=== PATIENT | female | born 1990 | race Caucasian/White ===

== ENCOUNTER 2016-08-12 18:31 | Emergency (ER) | payer OTHER ==
[~2016-08-12] VITALS: Ht 154.9 cm; Wt 56.0 kg
[~2016-08-12 18:31] MED LIST: DENIES; LIDO20SO19 MM
[2016-08-12 19:01] VITALS: Ht 154.9 cm; Wt 56.0 kg
[2016-08-12] MEDS ORDERED: KETOROLAC 30 MG INJ IM STA (20:21)
[2016-08-12] MEDS ORDERED: IBUP400T22 PO (20:23)
--- NOTE | 2016-08-12 20:58 | RADRPT ---
PROCEDURE: XR Knee. CLINICAL INDICATION: Right knee pain. TECHNIQUE: Three views of the right knee are available for review. COMPARISON: None available FINDINGS: No acute fracture or dislocation is seen. No radiopaque foreign body is identified. Alignment is a natomic. No significant soft tissue swelling is present. IMPRESSION: 1. No acute fracture or dislocation is seen. RPTAT: HH .Lee Gramajo MD, MD Date Time Electronically viewed and signed by .Lee Gramajo MD, on 08/12/2016 20:58 .N/
--- NOTE | 2016-08-12 22:15 | ERD ---
ER Documentation Chief Complaint Date/Time DATE: 08/12/16 TIME: 22:10 Chief Complaint right knee pain after running since friday HPI 26-year-old young woman complains of right knee pain and crepitus after going jogging 2 days ago. She also regularly lifts heavy weights and does squats and leg presses with heavy weights daily. She denies pain or discomfort to the left knee, no redness or swelling, no fevers or chills, no recent direct trauma to the knee, no recent new medication use, no chest pain or shortness of breath. No rash. ROS All systems reviewed and are negative except as per history of present illness. Medications Home Meds Active Scripts Ibuprofen* (Motrin*) 400 Mg Tab, 400 MG PO Q8 for PAIN AND/OR INFLAMMATION, #30 TAB Prov:MARIA L CRUZ MD 08/12/16 Lidocaine (Lidocaine Viscous) 100 Ml Soln, 15 ML MM pain Y for every 3 hours, # 120 Prov:CASEY JACKMAN DO 07/14/15 Reported Medications [Denies] No Conflict Check 06/23/10 Allergies Allergies: Coded Allergies: No Known Drug Allergies (Verified Allergy, Mild, 02/10/12) PMhx/Soc None Medical and Surgical Hx: pt denies Medical Hx, pt denies Surgical Hx History of Surgery: No Anesthesia Reaction: No Hx Neurological Disorder: No Hx Respiratory Disorders: No Hx Cardiac Disorders: No Hx Psychiatric Problems: No Hx Miscellaneous Medical Probl: No Hx Alcohol Use: No Hx Substance Use: No Hx Tobacco Use: No Smoking Status: Never smoker FmHx Family History: No diabetes Physical Exam Vitals Vital Signs Date Time Temp Pulse Resp B/P Pulse Ox O2 Delivery O2 Flow Rate FiO2 08/12/16 19:01 98.5 58 20 117/72 100 Physical Exam GENERAL: Well-developed, well-nourished, well-hydrated, in no apparent distress , looks nontoxic in appearance HEENT: Moist mucous membranes, pink conjunctiva, no cervical spine tenderness or step-off deformities, no goiter, no jaundice or icterus, extraocular movements intact without pain. No submandibular induration, and no pharyngeal erythema NEURO: Alert and oriented 3, cranial nerves II through XII intact bilaterally, pupils equal round reactive to light, no focal deficits or facial asymmetry, sensation intact distally Strength 5/5 in upper and lower extremities bilaterally CARDIAC: Regular rate and rhythm, no murmurs rubs or gallops LUNGS: Clear bilaterally no wheezing crackles or stridor ABDOMEN: Soft nontender, no guarding, no rigidity, no rebound, no psoas sign no obturator sign. Normoactive bowel sounds SKIN: Warm and dry to touch, no abrasions, contusions, or hematomas, no lacerations, no ecchymosis, no target lesions, and without ulcers EXTREMITIES: No clubbing cyanosis or edema, calves are bilaterally symmetrical, no Homans sign, no popliteal cord sign. Distal pulses equal and bilateral. She has severe crepitus to the right knee with flexion and extension although stability of the knee is intact with varus and valgus stress maneuvers. Anterior, posterior drawer signs are negative. PSYCH: Normal affect without agitation or irritability Results 24 hrs Current Medications Medications (Trade) Dose Ordered Sig/Vince Route PRN Reason Start Time Stop Time Status Last Admin Dose Admin Ketorolac Tromethamine (Toradol) 30 mg ONCE STAT IM 08/12/16 20:21 08/12/16 20:23 DC 08/12/16 21:03 Procedures/MDM I administered Toradol 30 mg intramuscular injection for pain control. Felix wrap was applied circumferentially to the right knee for comfort and supportive measures. Splint Assessment: Neurovascularly intact post splint placement with good fit. X-ray right knee 3V Interpreted by me: Bones: No fracture Joints: No dislocation Foreign body: None Knee x-ray is unremarkable, and bones appear healthy, I suspect meniscus injury given her heavy weight lifting and leg presses she has been doing for over a year at her recent run. I recommended she decrease her weights and recommended against running or jogging for the next few weeks. I will prescribe her low- dose NSAID to help with symptoms, although I told her if symptoms continue or worsen she will require MR imaging of the knee to rule out meniscus or other ligamentous or tendinous injury. If symptoms continue or worsen she may require surgical orthopedic intervention. She understood these instructions. Patient feels much better at this time, and vital signs are normal, symptoms have improved. I did give strict instructions to return to the ED if symptoms continue or worsen, patient will otherwise follow-up with primary care physician. Patient understood instructions and agreed to plan. Departure Diagnosis: Primary Impression: Knee sprain Encounter type: initial encounter Involved ligament of knee: unspecified ligament Laterality: right Qualified Code: S83.91XA - Sprain of right knee, unspecified ligament, initial encounter Additional Impression: Injury of meniscus of left knee Encounter type: initial encounter Qualified Code: S83.92XA - Injury of meniscus of left knee, initial encounter Ruled Out: Arthritis Condition: Good Patient Instructions: What Is Arthritis?, Knee Pain, Meniscus Injury (Possible) MARIA L CRUZ MD Aug 12, 2016 22:15
== END 2016-08-12 21:24 | disposition home or self-care (01) ==
LOC: FTE 18:31
DX: S83.91XA Sprain of unspecified site of right knee, initial encounter (principal); S83.92XA Sprain of unspecified site of left knee, initial encounter; X50.0XXA Overexertion from strenuous movement or load, initial encounter; Y92.9 Unspecified place or not applicable
CPT/HCPCS: 73562; 96372; J1885; Z7502